=== PATIENT | male | born 1960 | race Caucasian/White ===

== ENCOUNTER 2019-10-01 12:01 | Emergency (ER) | payer OTHER, SELFPAY ==
[2019-10-01 12:02] VITALS: BP 158/89; PULSE 69; RESP 18; TEMP 36.6; O2SAT 96; BMI 33.5
--- NOTE | 2019-10-01 12:18 | EKG12_ITS ---
Test Reason : PALPIATIONS Blood Pressure : / mmHG Vent. Rate : 070 BPM Atrial Rate : 070 BPM P-R Int : 178 ms QRS Dur : 084 ms QT Int : 360 ms P-R-T Axes : 037 -09 005 degrees QTc Int : 388 ms Sinus rhythm with Premature atrial complexes Inferior infarct , age undetermined Abnormal ECG Confirmed by NEHA SANTANA, LEONARDO ([id number]), publishing editor VALERIE PERRY ([id number]) on 10/04/2019 10:33:59 AM Referred By: KEV/ Confirmed By:LEONARDO SOLOMON MD
--- NOTE | 2019-10-01 12:19 | ED.VIS.GEN ---
History of Present Illness Chief Complaint: Palpitations Narrative: Patient is a 59-year-old male who presents with palpitations. He does have a prior history of atrial fibrillation. He also reports prior history of TN however has been noncompliant with medications. However he reports that his TN was related to a chemical exposure from a solvent. He did not have any coronary stents. States currently he only takes glucosamine and a multivitamin. Over the past 3 days he has had increased palpitations and sensation of his heart racing. He denies any associated chest pain shortness of breath near syncope. No nausea or vomiting. He otherwise denies recent illness such as fevers or cough. Past Medical History - Allergies and Home Meds Allergies/Adverse Reactions: Allergies No Known Allergies Allergy (Verified 10/01/19 12:47) Past Medical History: - - History of TN, atrial fibrillation Review of Systems All systems negative except as indicated General: Denies: Fever Eyes: Denies: Visual changes - bilaterally ENT: Denies: Bilateral ear pain Cardiovascular: Reports: Palpitations, Heart racing. Denies: Chest pain Respiratory: Denies: Dyspnea Gastrointestinal: Denies: Nausea, Vomiting, Diarrhea Musculoskeletal: Denies: Myalgias, Arthralgias Skin: Denies: Rash Neurological: Denies: Headache Hematologic: Denies: Easy bruising Allergy: Denies: Uticaria Physical Exam Vital Signs/Narrative: Vital Signs Temp Pulse Resp BP Pulse Ox 10/01/19 12:02 97.8 F 69 18 158/89 H 96 Inital Vital Signs reviewed: Yes General: Well nourished Head: Normocephalic Eyes: EOMI ENT: Moist mucous membranes Neck: Supple Cardiovascular: Regular rate, Regular rhythm Respiratory: No distress, CTA bilaterally Abdomen: Soft, Nontender Extremities: Nontender Skin: Normal color Neurological: Alert Psychological: Normal affect Diagnostic/Tx/Re-eval Impressions Chest X-Ray 10/01/19 13:02 IMPRESSION: No acute abnormality is seen. Electronically Signed: Nilton Broussard, at 13:13 EDT , Service support , 10/01/19 13:02 Chest PA and Lateral [RAD] Stat Laboratory Results 10/01/19 10/01/19 12:55 12:55 WBC 6.4 RBC 4.93 Hgb 15.5 Hct 46.2 MCV 93.7 MCH 31.4 MCHC 33.5 RDW Std Deviation 42.5 RDW Coeff of Nigel 12.3 Plt Count 235 MPV 10.2 Immature Gran % (Auto) 0.000 Neut % (Auto) 60.7 Lymph % (Auto) 29.8 [place] % (Auto) 7.4 Eos % (Auto) 1.6 Baso % (Auto) 0.5 Absolute Neuts (auto) 3.9 Absolute Lymphs (auto) 1.89 Nucleated RBC % 0 Sodium 140 Potassium 3.8 Chloride 106 Carbon Dioxide 28.0 Anion Gap 6 BUN 13 Creatinine 0.82 Estim Creat Clear Calc 111.38 Est GFR (MDRD) Af Amer 124 Est GFR (MDRD) Non-Af 102 BUN/Creatinine Ratio 15.9 Glucose 88 Calcium 8.7 Troponin I < 0.015 - Medical Decision Making EKG shows sinus rhythm with PACs at a rate of 70 no acute ischemic changes. Labs are unremarkable. Chest x-ray unremarkable. Patient does not have a primary care physician. We will refer to establish primary care. Although he has a history of atrial fibrillation at this time he is in normal sinus rhythm and controlled. I do not see indication for hospitalization. He understands return for new or worsening symptoms and was advised on specific signs and symptoms to monitor for and was discharged home. ED Disposition - Plan for ED Patient: Disposition: Home or Assisted Living Diagnosis: Palpitations Instructions: ED Palpitations Referrals: Fast,Swetha, DO [NON-STAFF] -
--- NOTE | 2019-10-01 13:02 | RAD_ITS ---
STUDY: X-RAY CHEST REASON FOR EXAM: Male, 59 years old. Pt is having palpitations for 3 days. TECHNIQUE: PA and lateral views of the chest. COMPARISON: None. FINDINGS: EKG electrodes are seen. The lungs are clear and expanded. There is no demonstrated pleural abnormality. Normal size heart. Normal mediastinum and ko. Normal visualized pulmonary arteries. There is atherosclerotic tortuosity of the aortic arch and descending thoracic aorta. There is demineralization of the osseous structures. Loss of white of mid dorsal vertebrae. Normal visualized ribs, clavicles, and shoulders. There is no demonstrated abnormality of the visualized soft tissue structures of the upper abdomen. RAD/Chest PA and Lateral IMPRESSION: No acute abnormality is seen. Electronically Signed: Nilton Broussard, at 13:13 EDT , Service support ,
[2019-10-01 13:04] LABS: Absolute Lymphocyte Count 1.89 X10^3/uL (0.83-4.51); Absolute Neutrophil Count 3.9 X10^3/uL (2.0-7.7); Basophil# 0.03 X10^3/uL; Basophil% 0.5 % (0-1); Eosinophils% 1.6 % (0-5); Hematocrit 46.2 % (40-54); Hemoglobin 15.5 g/dL (13.0-16.5); Lymphocyte # 1.89 X10^3/ul (4.0); Lymphocyte % 29.8 % (19-41); Mean Corp Hgb Conc 33.5 g/dL (32-36); Mean Corpuscular Hgb 31.4 pg (27.0-32.0); Mean Corpuscular Volume 93.7 fL (80-94); Mean Platelet Vol. 10.2 fl (6.2-12.0); Monocyte# 0.47 X10^3/uL; Monocyte% 7.4 % (0-10); NRBC Flagged by Analyzer 0 % (0-5); Neutrophil # 3.86 X10^3/uL (2.7-7.7); Neutrophil % 60.7 % (47-70); Platelet Count 235 K/mm3 (150-450); RBC Distribution Width CV 12.3 % (11.6-14.6); RBC Distribution Width SD 42.5 fl (35.1-43.9); Red Blood Count 4.93 M/mm3 (4.6-6.2); White Blood Count 6.4 K/mm3 (4.4-11.0)
[2019-10-01 13:18] VITALS: BP 130/75; PULSE 73; RESP 14; O2SAT 96; O2SAT 97
[2019-10-01 13:20] LABS: Anion Gap 6 (5-15); BUN 13 mg/dL (7-18); BUN/Creat Ratio 15.9 RATIO (10-20); Calcium,Total 8.7 mg/dL (8.5-10.1); Chloride 106 mmol/L (98-107); Creatinine, Serum 0.82 mg/dL (0.70-1.30); EST Glomerular Filtration Rate 102 mL/min (>60); Est Glom Filt Rate - Afr Amer 124 mL/min (>60); Estimated Creatinine Clearance 111.38 ml/min; Glucose 88 mg/dL (74-106); Potassium 3.8 mmol/L (3.5-5.1); Sodium Level 140 mmol/L (136-145)
[2019-10-01 14:16] VITALS: BP 122/77; PULSE 69; RESP 24; O2SAT 96
== END 2019-10-01 14:17 | disposition home or self-care (01) ==
PROVIDERS: Emergency Provider Emergency Medicine
DX: R00.2 Palpitations (principal); I48.91 Unspecified atrial fibrillation; I25.2 Old myocardial infarction; Z91.14 Patient's other noncompliance with medication regimen
CPT/HCPCS: 71046; 80048; 84484; 85025; 93005; 99284; A4216

== ENCOUNTER → 2020-02-11 10:38 | Outpatient (CLI) | payer OTHER, SELFPAY ==
[2020-01-23 11:28] VITALS: BMI 34.5
--- NOTE | 2020-02-11 10:40 | ECHOD_ITS ---
Reason For Study: ARRHYTHMIA Procedure This was a 2D Doppler, Color Flow transthoracic echocardiogram. Exam performed in department. Left Ventricle Normal LV size. Left ventricular systolic function is normal. Stage 1 diastolic dysfunction. No regional wall motion abnormalities noted. Right Ventricle Normal RV size. Normal systolic function. Atria The left atrium is moderately enlarged. Normal right atrium. Mitral Valve Normal mitral valve. Tricuspid Valve Normal tricuspid valve. Mild (1+) tricuspid valve insufficiency. Pulmonary artery systolic pressure is 38 mmHg. Aortic Valve Normal aortic valve. Trisinus/trileaflet aortic valve. Pulmonic Valve Normal pulmonic valve. Great Vessels Mildly dilated aortic root. The pulmonary artery is normal size. Inferior vena cava collapse with respiration. Pericardium/Pleural No pericardial effusion. MMode/2D Measurements & Calculations LVIDd: 4.6 cm IVSd: 1.1 cm Ao root diam: 4.2 cm LVIDs: 2.6 cm LVPWd: 1.1 cm RVDd: 4.6 cm FS: 43.8 % LAV(MOD-bp): 99.7 ml LA A4 area: 27.6 cm2 LA dimension(2D): 5.1 cm LAV(MOD-bp) Indexed: 40.5 ml/m2 LAV(MOD-sp2): 106.6 ml LAV(MOD-sp4): 89.7 ml RA A4 area: 20.1 cm2 Time Measurements MV dec time: 0.23 sec Doppler Measurements & Calculations MV E max lauro: 60.9 cm/sec Lat Peak E' Lauro: 7.0 cm/sec Med Peak E' Lauro: 6.2 cm/sec MV A max lauro: 70.6 cm/sec E/E' lat: 8.7 E/E' med: 9.8 MV E/A: 0.86 Ao V2 max: 142.3 cm/sec LV V1 max: 94.4 cm/sec PA V2 max: 112.5 cm/sec Ao max P.1 mmHg LV V1 max P.6 mmHg PI end-d lauro: 113.8 cm/sec TR max lauro: 295.5 cm/sec TR max P.9 mmHg Interpretation Summary Normal LV size. Left ventricular systolic function is normal. Stage 1 diastolic dysfunction. Pulmonary artery systolic pressure is 38 mmHg. Mildly dilated aortic root. Ordering Physician: Kendrick Iniguez Referring Physician: SCOTTY LIRA Performed By: Miriam Schafer RDCS, RVT
== END ==
PROVIDERS: PCP Family Medicine; Referring Provider Internal Medicine Cardiovascular Disease; Visit Provider Internal Medicine Cardiovascular Disease
DX: I49.1 Atrial premature depolarization (principal)
CPT/HCPCS: 93225; 93226; 93306

== ENCOUNTER 2020-06-20 05:56 | Day surgery (SDC) | payer OTHER, SELFPAY ==
[2020-05-05 09:05] VITALS: BMI 33.5
--- NOTE | 2020-06-06 07:25 | HP_ITS ---
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 Is patient in pain?: No Allergies No Known Allergies Allergy (Verified 05/05/20 09:06) Medications Multivitamins,Therapeutic [Multivitamin] 1 tab PO DAILY 10/01/19 [History Confirmed 05/05/20] Turmeric Root Extract [Turmeric Curcumin] 500 mg PO DAILY 10/01/19 [History Confirmed 05/05/20] lisinopril 20 mg tablet 10 mg PO DAILY #90 tab 04/15/20 [Rx Confirmed 05/05/20] aspirin 325 mg tablet,delayed release 325 mg PO .QODAY tab 05/05/20 [History Confirmed 05/05/20] omega-3 fatty acids 1,000 mg capsule 1,000 mg PO DAILY 05/05/20 [History Confirmed 05/05/20] [facility] Medical History (Updated 05/05/20 @ 09:04 by Loren Michael) Obesity (Chronic) Obstructive sleep apnea (Chronic) History of non-ST elevation myocardial infarction (NSTEMI) (Resolved 2003) Hypertension (Chronic) Arthritis (Acute) Fatigue (Acute) Intermittent palpitations (Acute) Irregular heart beats (Chronic) Premature atrial contractions (Chronic) Surgical History (Updated 05/05/20 @ 09:04 by Loren Michael) History of esophagogastroduodenoscopy (EGD) (Acute) Hx of umbilical hernia repair (Acute) History of herniorrhaphy (Resolved) Family History Mother Heart disease atrial fib RFA Grandfather Myocardial infarction Brother Heart disease Atrial fib? Social History (Updated 05/06/20 @ 08:[address] Anthony Cole MD) Smoking Status: Former smoker quit date: 05/02/79 second hand exposure: No alcohol intake: current alcohol intake frequency: 0-2 drinks per day Alcohol type: beer substance use type: does not use caffeine: Yes Type: coffee what type of physical activity do you participate in: other HPI HPI HPI: ANABELLA CM, is a 59 M who presents to the office today for HPI HPI Surgical H&P: Yes HPI: ANABELLA CM, is a 59 M who presents to the office today for Screening colonoscopy. The patient has never had a screening colonoscopy. The patient describes no abdominal pain or blood in his stool. He has no nausea or vomiting. He has no family history of colon cancer. ROS General General: Yes fatigue; no weight change, appetite, colon cancer, breast cancer or weakness HEENT HEENT: No difficulty swallowing, eye injury, eye surgery, swollen glands or hoarseness Endo Endocrine: No thyroid disease, diabetes mellitus, thyroid cancer, Hair loss, heat intolerance or cold intolerance Skin Skin: No rash or changing moles Breast Breast: No left breast lump, right breast lump, nipple discharge, breast pain, abnormal mammogram, abnormal US or breast enlargement Musc Musculoskeletal: Yes arthritis and joint pain; no back problems, rheumatoid arthritis or gout Cardio Cardiovascular: Yes high blood pressure and heart attack; no murmur, pacemaker, heart disease, atrial fibrillation, heart stent, palpitations, shortness of breat with exertion or chest pain Psych Psychiatric: No depression, anxiety or hearing voices Resp Respiratory: No shortness of breath, Yes sleep apnea, No cough, No COPD, No asthma, No emphysema, No wheezing Gastro Gastrointestinal: No abdominal pain, No nausea or vomiting, No diarrhea, No constipation, No blood in stool, No acid reflux, No hemorrhoids, No ulcers, No gallbladder problem, No black,tarry stools Harvey Hematologic: No blood thinners, No blood disorders, No bleeding, No anemia, No blood clots Neuro Neurologic: No system reviewed and no additional complaints, except as docu, No as per HPI, No abnormal walking, No abnormal hearing, No abnormal movements, No abnormal speech, No behavioral changes, No burning sensations, No confusion, No seizure-like activity, No unsteadiness, No dizziness, No localized weakness, No frequent falls, No headache(s), No lack of coordination, No loss of vision, No memory loss, No numbness, No other visual disturbances, No radiating pain, No restless legs, No sensory deficit, No fainting, No tingling, No tremor(s), No weakness, No other Exam Const General: cooperative Orientation: alert, oriented x3 Chest Breast Palpation: No nipple discharge Resp Effort & Inspection: normal respiratory effort Auscultation: clear to auscultation bilaterally Cardio Rate: regular rate Rhythm: regular rhythm Heart Sounds: no murmurs GI Inspection: non-distended Palpation: soft, nontender Assessment & Plan Problems 1. Screening for colon cancer Z12.11 Plan The patient has never had a screening colonoscopy. I recommended one to him. I would like him to hold his aspirin for 5 days prior to the procedure. I explained endoscopy in detail to the patient. I explained the risks including but not limited to stroke or heart attack with anesthesia, perforation of the GI tract, bleeding, infection. I explained that any of these could necessitate further emergency surgery. The patient understands and all questions were answered sufficiently. The patient wishes to proceed with procedure. We discussed the current risks associated with COVID-19. While it is understood that there is a community spread of COVID-19, the risk of hyacinth COVID-19 while at [facility] ([facility]) is very low; however, the risk cannot be completely mitigated because of the community spread of the disease. We discussed in detail the risk of exposure to and/or potential harm posed by the COVID-19 virus with having a surgery/procedure at this time versus the risk of delaying the surgery/procedure. It is not possible to know either the risk of delaying the surgery or procedure or chance of getting an infection with perfect accuracy, but a joint decision was made to proceed at this time with the scheduled surgery/procedure as indicated on the consent form. Patient was notified that we will need to comply with any screening or testing [facility] wishes to perform or that surgery may be delayed for any positive results. Anthony Cole MD Pager: [facility] [address] [place] [address], [address] [place] [address] Office: Orders Orders: Colonoscopy Today Z12.11 Coding Level of Care Code Off vis,new,level 3 Diagnoses Screening for colon cancer Z12.11 I have re-examined the patient. There are no clinical changes since date of exam.
[2020-06-20 07:09] VITALS: BP 142/87; PULSE 74; RESP 16; TEMP 36.3; O2SAT 96; BMI 33.7
[2020-06-20] MEDS: Lactated Ringers 1,000 ML 100 ML IV (07:23)
[2020-06-20 08:19] VITALS: BP 142/87; BP 98/59; PULSE 65; RESP 16; TEMP 36.1; O2SAT 95
[2020-06-20 08:20] VITALS: BP 105/70; BP 142/87; PULSE 61; RESP 16; O2SAT 95
--- NOTE | 2020-06-20 08:22 | OP.COLON_ITS ---
Patient Name: Du Lenz Procedure Date: 06/20/2020 7:46 AM Date of : 1960 Age: 59 Procedure: Colonoscopy Indications: Screening for colorectal malignant neoplasm Providers: Anthony Cole MD Referring MD: Shirley Carcamo Medicines: Monitored Anesthesia Care Patient Profile: This is a 59 year old male. Refer to note in patient chart for documentation of history and physical. Last Colonoscopy: none. The patient's first colonoscopy is today. Complications: No immediate complications. Procedure: Pre-Anesthesia Assessment: - Prior to the procedure, a History and Physical was performed, and patient medications and allergies were reviewed. The patient's tolerance of previous anesthesia was also reviewed. The risks and benefits of the procedure and the sedation options and risks were discussed with the patient. All questions were answered, and informed consent was obtained. Prior Anticoagulants: The patient has taken aspirin, last dose was 5 days prior to procedure. After reviewing the risks and benefits, the patient was deemed in satisfactory condition to undergo the procedure. After I obtained informed consent, the scope was passed under direct vision. Throughout the procedure, the patient's blood pressure, pulse, and oxygen saturations were monitored continuously. The pediatric colonoscope was introduced through the anus and advanced to the cecum, identified by appendiceal orifice and ileocecal valve. The colonoscopy was performed without difficulty. The patient tolerated the procedure well. The quality of the bowel preparation was good. Scope In: 7:54:13 AM Scope Withdrawal Time 0 hours 6 minutes 3 seconds Scope Out: 8:15:15 AM Total Procedure Duration Time 0 hours 21 minutes 2 seconds Findings: The entire examined colon appeared normal on direct and retroflexion views. Impression: - The entire examined colon is normal on direct and retroflexion views. - No specimens collected. Recommendation: - Discharge patient to home. - Resume previous diet. - Continue present medications. - Repeat colonoscopy in 10 years for screening purposes. Procedure Code(s): --- Professional --- 78080, Colonoscopy, flexible; diagnostic, including collection of specimen(s) by brushing or washing, when performed (separate procedure) Diagnosis Code(s): --- Professional --- Z12.11, Encounter for screening for malignant neoplasm of colon CPT copyright 2017 [employer]. All rights reserved. The codes documented in this report are preliminary and upon company dancer review may be revised to meet current compliance requirements. Anthony Cole MD 06/20/2020 8:22:37 AM This report has been signed electronically. Number of Addenda: 0 Note Initiated On: 06/20/2020 7:46 AM
--- NOTE | 2020-06-20 08:23 | OP.CCLET_ITS ---
06/20/2020 Shirley Carcamo [facility] [address] [address] Re : Colonoscopy procedure for Du Lenz Dear Dr. Carcamo This procedure was performed on Saturday, June 20, 2020. My impressions and recommendations are as follows: Impressions : - The entire examined colon is normal on direct and retroflexion views. - No specimens collected. Recommendations : - Discharge patient to home. - Resume previous diet. - Continue present medications. - Repeat colonoscopy in 10 years for screening purposes. My findings are described in the full procedure note, which is enclosed. If I can be of further assistance, please feel free to contact me at Doctor phone number(s): , Work: . Sincerely, Anthony Cole MD 06/20/2020 8:22:37 AM This report has been signed electronically.
[2020-06-20 08:27] VITALS: BP 107/76; BP 142/87; PULSE 66; RESP 16; O2SAT 97
[2020-06-20 08:35] VITALS: BP 103/72; BP 115/71; BP 142/87; PULSE 67; RESP 16; TEMP 36.1; O2SAT 95; O2SAT 96
[2020-06-20 08:54] VITALS: BP 142/87
== END 2020-06-20 09:05 | disposition home or self-care (01) ==
LOC: EN 05:57 → AC 05:57
PROVIDERS: PCP Family Medicine; Referring Provider Family Medicine; Visit Provider Surgery
PROC: 0DJD8ZZ Inspection of Lower Intestinal Tract, Via Natural or Artificial Opening Endoscopic (ICD-10-PCS; CPT 45378; principal; 2020-06-20 07:55)
DX: Z12.11 Encounter for screening for malignant neoplasm of colon (principal); I10 Essential (primary) hypertension; I48.91 Unspecified atrial fibrillation; I49.1 Atrial premature depolarization; I25.2 Old myocardial infarction; M19.90 Unspecified osteoarthritis, unspecified site; E66.9 Obesity, unspecified; Z68.33 Body mass index [BMI] 33.0-33.9, adult; Z79.82 Long term (current) use of aspirin; Z79.899 Other long term (current) drug therapy; Z87.891 Personal history of nicotine dependence
CPT/HCPCS: 45378; 87426; J7120; J2405

== ENCOUNTER → 2020-08-04 12:13 | Outpatient (CLI) | payer OTHER, SELFPAY ==
[2020-07-24 12:44] VITALS: BMI 33.5
== END ==
PROVIDERS: PCP Family Medicine; Visit Provider Nurse Practitioner Acute Care
DX: G47.33 Obstructive sleep apnea (adult) (pediatric) (principal)

== ENCOUNTER → 2020-08-11 13:49 | Outpatient (CLI) | payer OTHER, SELFPAY ==
[2020-07-24 12:44] VITALS: BMI 33.5
[2020-08-11 15:12] LABS: Hematocrit 47.5 % (40-54); Hemoglobin 15.5 g/dL (13.0-16.5); Mean Corp Hgb Conc 32.6 g/dL (32-36); Mean Corpuscular Hgb 30.9 pg (27.0-32.0); Mean Corpuscular Volume 94.6 fL (80-94); Mean Platelet Vol. 10.9 fl (6.2-12.0); Platelet Count 256 K/mm3 (150-450); RBC Distribution Width CV 12.4 % (11.6-14.6); RBC Distribution Width SD 43.2 fl (35.1-43.9); Red Blood Count 5.02 M/mm3 (4.6-6.2); White Blood Count 7.6 K/mm3 (4.4-11.0)
[2020-08-11 16:08] LABS: Anion Gap 6 (5-15); BUN 18 mg/dL (7-18); BUN/Creat Ratio 19.7 RATIO (10-20); Calcium,Total 9.1 mg/dL (8.5-10.1); Chloride 104 mmol/L (98-107); Creatinine, Serum 0.92 mg/dL (0.70-1.30); EST Glomerular Filtration Rate 90 mL/min (>60); Est Glom Filt Rate - Afr Amer 108 mL/min (>60); Glucose 88 mg/dL (74-106); Magnesium 2.4 mg/dL (1.6-2.6); Potassium 3.9 mmol/L (3.5-5.1); Sodium Level 138 mmol/L (136-145); Thyroid Stim Hormone (TSH) 1.63 uIU/mL (0.358-3.74)
== END ==
PROVIDERS: PCP Family Medicine; Referring Provider Internal Medicine Cardiovascular Disease; Visit Provider Internal Medicine Cardiovascular Disease
DX: I49.1 Atrial premature depolarization (principal); I49.9 Cardiac arrhythmia, unspecified; R00.2 Palpitations; R53.83 Other fatigue
CPT/HCPCS: 36415; 80048; 83735; 84443; 85027

== ENCOUNTER 2021-08-30 13:53 | Emergency (ER) | payer OTHER, SELFPAY ==
[2021-08-30 13:54] VITALS: BP 122/69; PULSE 85; RESP 17; TEMP 36.2; O2SAT 97
--- NOTE | 2021-08-30 14:09 | CT_ITS ---
STUDY: CT BRAIN WITHOUT CONTRAST REASON FOR EXAM: Male, 61 years old. Dizziness RADIATION DOSAGE (If Supplied By Facility): CTDIvol = ( 44.99 ) mGy, DLP = ( 863.60 ) mGycm TECHNIQUE: Transaxial CT imaging of the brain was performed without administration of intravenous contrast material. Individualized dose optimization techniques were used for this CT. COMPARISON: No relevant priors. FINDINGS: Normal soft tissue structures. Normal calvarium. Normal size ventricles and extra-axial spaces for the patient''s age. Normal white matter tracts of the cerebral hemispheres. Normal basal ganglia and thalami. Normal brainstem. Normal cerebellum. There is no intracranial hemorrhage. There are no findings of an acute ischemic infarction. Normal visualized paranasal sinuses. CT/Brain/Head without Contrast IMPRESSION: No acute intracranial hemorrhage, mass effect or acute large territory infarcts Electronically Signed: Manuel Rodrigez MD at 15:01 EDT ,
--- NOTE | 2021-08-30 14:10 | EKG12_ITS ---
Test Reason : DIZZINESS Blood Pressure : / mmHG Vent. Rate : 078 BPM Atrial Rate : 078 BPM P-R Int : 166 ms QRS Dur : 076 ms QT Int : 344 ms P-R-T Axes : 046 -05 010 degrees QTc Int : 392 ms Sinus rhythm with Premature supraventricular complexes Inferior infarct , age undetermined Abnormal ECG Confirmed by VERONICA SANTANA, PARADISE ([id number]), editor book RAMEZ HANNA ([id number]) on 08/31/2021 1:23:27 PM Referred By: UTE Confirmed By:PARADISE MARTIN MD
--- NOTE | 2021-08-30 14:10 | EX.ED.DYSGE1 ---
HPI History of Present Illness Chief Complaint: Dizziness Informant: patient Onset/Context/Timing Onset: Today Context: Sudden Onset Timing: Intermittent Current Severity: Mild Maximum Severity: 10/09 Narrative Narrative: 61-year-old male history of hypertension prior MA and PACs. States he was washing his car today and going from up-and-down position he had dizziness. Said he felt off balance. Denies any headache. No chest pain. No abdominal pain. No nausea, vomiting or diarrhea. He had a similar episode a week ago when he was planning shrubs at his mom's house. He denies any visual change or speech change. He denies any numbness or weakness to his upper or lower extremities. Denies any vertigo symptoms. Prior similar symptoms: Yes Recent Illness/Hospitalization: No PFSH PFSH Medical History Arthritis Essential hypertension History of non-ST elevation myocardial infarction (NSTEMI) (2003) Intermittent palpitations Irregular heart beats Obesity Obstructive sleep apnea Premature atrial contractions Home Medications multivitamin with folic acid 1 tab PO DAILY 10/01/19 [History Last Taken Unknown] turmeric root extract 500 mg PO DAILY 10/01/19 [History Last Taken Unknown] omega-3 fatty acids 1,000 mg capsule 1,000 mg PO QODAY 05/05/20 [History Last Taken Unknown] Vinegar Tonic 1 dose PO QODAY 06/13/20 [History Last Taken Unknown] ascorbic acid (vitamin C) 1,000 mg PO DAILY 06/13/20 [History Last Taken Unknown] coenzyme Q10 100 mg PO QODAY 06/13/20 [History Last Taken Unknown] grape seed extract 150 mg PO DAILY 06/13/20 [History Last Taken Unknown] hawthorn 500 mg capsule mg PO 07/23/21 [History Last Taken Unknown] losartan 50 mg tablet 50 mg PO DAILY #30 tab 08/05/21 [Rx Last Taken Unknown] Allergy/AdvReac Type Severity Reaction Status Date / Time No Known Allergies Allergy Verified 08/30/21 13:53 Family History Mother Heart disease atrial fib RFA Grandfather Myocardial infarction Brother Heart disease Atrial fib? Surgical History History of esophagogastroduodenoscopy (EGD) History of herniorrhaphy Hx of umbilical hernia repair Social History Smoking Status: Unknown if ever smoked second hand exposure: No alcohol intake: current alcohol intake frequency: 0-2 drinks per day Alcohol type: beer substance use type: does not use caffeine: Yes Type: coffee what type of physical activity do you participate in: other ROS ROS ED ROS Narrative Dizziness. Denies nausea, vomiting, diarrhea. Denies headache, chest pain, abdominal pain or shortness of breath. Denies fever or chills. Review of Systems ROS Unobtainable: Denies due to encephalopathy Constitutional Constitutional ED: Denies chills or fever(s) Eyes Eyes: Denies blurry vision, change in vision or diplopia ENT ENT ED: Denies ear pain or rhinorrhea Cardiovascular Cardiovascular: Denies chest pain, palpitations or racing heartbeat Respiratory/Chest Respiratory/Chest: Denies cough or dyspnea Gastrointestinal Gastrointestinal: Denies abdominal pain, constipation, diarrhea, nausea or vomiting Genitourinary Genitourinary ED: Denies dysuria Musculoskeletal Musculoskeletal: Denies arthralgias or myalgias Integumentary Denies abscess or rash Neurologic Neurologic: Denies headache(s), paresthesias or weakness Psychiatric Psychiatric: Denies depression Endocrine Endocrinology: Denies polyuria Allergic/Immunologic Allergic/Immunologic ED: Denies urticaria EXAM Physical Exam Narrative Exam Narrative: 61-year-old male vital signs are stable afebrile. Pulse ox 97% on room air no signs hypoxia. H EENT exam normal. Pupils round reactive light. Extra motions are intact. Normal speech. No facial droop. No trauma. Neck nontender no meningismus. Lungs clear to auscultation bilaterally. Heart regular rhythm rate about 85 no murmur. Chest wall nontender. Abdomen soft nontender. Moving all 4 extremities. 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 Dorsi plantarflexion intact. Neurologic exam normal. NIH is 0. Fingertip to nose within normal limits. Const Vital Signs: 08/30/21 13:54 08/30/21 14:04 08/30/21 14:55 Temperature 97.2 F L Temperature Source Temporal Pulse Rate 85 Pulse Rate [Lying] 73 Pulse Rate [Sitting (for 1 minute prior to obtaining)] 70 Pulse Rate [Standing (for 1 minute prior to obtaining)] 80 Respiratory Rate 17 Respiratory Effort Normal Non-Labored Respiratory Pattern Normal Blood Pressure 122/69 H Blood Pressure [Lying] 118/73 Blood Pressure [Sitting (for 1 minute prior to obtaining)] 121/84 H Blood Pressure [Standing (for 1 minute prior to obtaining)] 113/88 H Blood Pressure Mean 86 Blood Pressure Mean [Lying] 88 Blood Pressure Mean [Sitting (for 1 minute prior to obtaining)] 96 Blood Pressure Mean [Standing (for 1 minute prior to obtaining)] 96 Pulse Ox 97 Oxygen Delivery Method Room Air 08/30/21 16:09 Temperature Temperature Source Pulse Rate 72 Pulse Rate [Lying] Pulse Rate [Sitting (for 1 minute prior to obtaining)] Pulse Rate [Standing (for 1 minute prior to obtaining)] Respiratory Rate 24 H Respiratory Effort Respiratory Pattern Blood Pressure 115/82 H Blood Pressure [Lying] Blood Pressure [Sitting (for 1 minute prior to obtaining)] Blood Pressure [Standing (for 1 minute prior to obtaining)] Blood Pressure Mean 93 Blood Pressure Mean [Lying] Blood Pressure Mean [Sitting (for 1 minute prior to obtaining)] Blood Pressure Mean [Standing (for 1 minute prior to obtaining)] Pulse Ox 96 Oxygen Delivery Method Room Air Positive well nourished, well developed and obese; Negative for cachectic, contractures or unkempt General Appearance ED: well developed and NAD; Negative for unkempt, cachectic, contractures, cyanotic, diaphoretic or pallor Nutritional Appearance: obese; Negative for cachectic HEENT Reports moist mucous membranes Negative for trauma or tenderness Eyes PERRL and EOMs intact bilaterally General Eye ED: Negative for pale conjunctiva or scleral icterus Neck no lymphadenopathy, supple and no JVD General: Negative for tenderness Chest Wall inspection of chest normal and palpation of chest normal Resp normal respiratory effort and clear to auscultation bilaterally Effort and Inspection: Negative for pain with movement Auscultation: Negative for rales, rhonchi or wheezes Cardio regular rate, regular rhythm, S1 normal heart sound, S2 normal heart sound and no murmurs GI normal to inspection, nondistended, normoactive bowel sounds, non-tender, non-distended and no masses Inspection: Negative for abdominal distention Auscultation: normoactive bowel sounds Palpation: soft; Negative for tender, guarding or rebound tenderness present Back/Spine no CVA tenderness General Back: Negative for CVA tenderness Cervical Spine: Negative for cervical spine tenderness Thoracic Spine / Upper Back: Negative for thoracic spinal tenderness or paraspinal muscle tenderness Lumbar Spine / Lower Back: Negative for lumbar spinal tenderness Extremity normal to inspection General Extremety ED: Negative for edema or tenderness General Extremity: Negative for edema Neuro oriented x3 and CN's II-XII intact bilaterally Sensorium / Orientation: alert; Negative for orientation impaired, lethargic or stuporous Motor Exam: strength 5/5 throughout; Negative for general weakness Psych mental status grossly normal Appearance: Negative for unkempt Attitude: No agitated Mood & Affect: Negative for depressed, anxious or tearful Skin no rashes or lesions noted and no wounds General Skin Exam: Negative for jaundice or pallor MDM MDM MDM Narrative Medical decision making narrative: 61-year-old complain dizziness which appears to be positional but but not vertiginous. His exam is normal. His neurologic exam is normal. CAT scan labs are pending. Repeat exam at 4:40 PM patient is doing well. Exam normal. No change. And I discussed all of his test results and outpatient follow-up. He knows return if worse. Lab Data Attestation: I reviewed the patient's lab results. Lab results narrative: CBC shows a white count 1.3 H&H 15 and 45. Platelets 235. Electrolytes show a gap of 5 BUN 23 creatinine 0.9. Glucose 100. CAT scan shows no acute abnormality as read by the radiologist and reviewed by me. Orthostatic vital signs were negative per nursing. Labs: Laboratory Results - last 24 hr 08/30/21 08/30/21 14:26 14:26 WBC 11.3 H RBC 4.85 Hgb 15.9 Hct 45.2 MCV 93.2 MCH 32.8 H MCHC 35.2 RDW Std Deviation 42.1 RDW Coeff of Nigel 12.2 Plt Count 235 MPV 10.0 Immature Gran % (Auto) 0.400 Neut % (Auto) 77.2 H Lymph % (Auto) 15.6 L [place] % (Auto) 5.6 Eos % (Auto) 0.9 Baso % (Auto) 0.3 Absolute Neuts (auto) 8.7 H Absolute Lymphs (auto) 1.76 Nucleated RBC % 0 Sodium 140 Potassium 4.1 Chloride 109 H Carbon Dioxide 26.0 Anion Gap 5 BUN 23 H Creatinine 0.93 Estim Creat Clear Calc 95.75 Est GFR (MDRD) Af Amer 106 Est GFR (MDRD) Non-Af 88 BUN/Creatinine Ratio 24.8 H Glucose 100 Calcium 9.2 Radiography Diagnostic Testing: Clinical Impression(s) from Imaging Studies Brain CT 08/30/21 14:09 IMPRESSION: No acute intracranial hemorrhage, mass effect or acute large territory infarcts Electronically Signed: Manuel Rodrigez MD at 15:01 EDT , Rhythm Strip Rhythm Strip: Sinus Rhythm Rate: 78 Ectopy: None EKG Initial EKG: Attestation: I personally reviewed and interpreted this EKG as follows: Interpretation: Sinus Rhythm and No Acute Injury Pattern Comments: Normal sinus rhythm rate of 78 no acute signs of MA no ischemia nor significant dysrhythmia. Discharge Plan Triage Chief Complaint: Dizziness ED Provider: Jayro Stauffer Dx/Rx/DC Orders Clinical Impression: Dizziness of unknown cause, History of chronic hypertension Instructions: ED Dizziness, Uncertain Cause Prescriptions: No Action omega-3 fatty acids 1,000 mg capsule 1,000 mg PO QODAY RF: 0 hawthorn tamayo 500 mg capsule PO RF: 0 turmeric root extract 500 MG capsule 500 mg PO DAILY RF: 0 multivitamin with folic acid 1 TABLET tablet 1 tab PO DAILY RF: 0 ascorbic acid (vitamin C) 1,000 MG tablet 1,000 mg PO DAILY RF: 0 coenzyme Q10 100 MG capsule 100 mg PO QODAY RF: 0 grape seed extract 150 MG tablet extended release 150 mg PO DAILY RF: 0 Vinegar Tonic 1 dose PO QODAY RF: 0 losartan 50 mg tablet 50 mg PO DAILY Qty: 30 RF: 11 Primary Care Provider: Shirley Carcamo Referrals: Shirley Carcamo MD [Primary Care Provider] - As soon as possible Activity Restrictions/Additional Instructions: Your test today were unremarkable. Call and follow-up with your primary care physician for further evaluation. Disposition Disposition: Home, Self Care
[2021-08-30 14:36] LABS: Absolute Lymphocyte Count 1.76 X10^3/uL (0.83-4.51); Absolute Neutrophil Count 8.7 X10^3/uL (2.0-7.7); Basophil# 0.03 X10^3/uL; Basophil% 0.3 % (0-1); Eosinophils% 0.9 % (0-5); Hematocrit 45.2 % (40-54); Hemoglobin 15.9 g/dL (13.0-16.5); Lymphocyte # 1.76 X10^3/ul (0.83-4.51); Lymphocyte % 15.6 % (19-41); Mean Corp Hgb Conc 35.2 g/dL (32-36); Mean Corpuscular Hgb 32.8 pg (27.0-32.0); Mean Corpuscular Volume 93.2 fL (80-94); Monocyte# 0.63 X10^3/uL; Monocyte% 5.6 % (0-10); NRBC Flagged by Analyzer 0 % (0-5); Neutrophil # 8.69 X10^3/uL (2.7-7.7); Neutrophil % 77.2 % (47-70); Platelet Count 235 K/mm3 (150-450); RBC Distribution Width CV 12.2 % (11.6-14.6); RBC Distribution Width SD 42.1 fl (35.1-43.9); Red Blood Count 4.85 M/mm3 (4.6-6.2); White Blood Count 11.3 K/mm3 (4.4-11.0)
[2021-08-30 14:48] LABS: Anion Gap 5 (5-15); BUN 23 mg/dL (7-18); BUN/Creat Ratio 24.8 RATIO (10-20); Calcium,Total 9.2 mg/dL (8.5-10.1); Chloride 109 mmol/L (98-107); Creatinine, Serum 0.93 mg/dL (0.70-1.30); EST Glomerular Filtration Rate 88 mL/min (>60); Est Glom Filt Rate - Afr Amer 106 mL/min (>60); Estimated Creatinine Clearance 95.75 ml/min; Glucose 100 mg/dL (74-106); Potassium 4.1 mmol/L (3.5-5.1); Sodium Level 140 mmol/L (136-145)
[2021-08-30 14:55] VITALS: BP 113/88; BP 118/73; BP 121/84; PULSE 70; PULSE 73; PULSE 80
[2021-08-30 16:09] VITALS: BP 115/82; PULSE 72; RESP 24; O2SAT 96
== END 2021-08-30 16:52 | disposition home or self-care (01) ==
PROVIDERS: Emergency Provider Emergency Medicine; PCP Family Medicine; Visit Provider Emergency Medicine
DX: R42 Dizziness and giddiness (principal); I10 Essential (primary) hypertension; I25.2 Old myocardial infarction; E66.9 Obesity, unspecified; Z68.30 Body mass index [BMI] 30.0-30.9, adult; Z79.899 Other long term (current) drug therapy
CPT/HCPCS: 70450; 80048; 85025; 93005; 99285; A4216

== ENCOUNTER → 2022-05-31 | Outpatient (CLI) | payer OTHER, SELFPAY ==
[2022-05-31 18:13] LABS: Absolute Lymphocyte Count 2.58 X10^3/uL (0.83-4.51); Absolute Neutrophil Count 4.6 X10^3/uL (2.0-7.7); Basophil# 0.03 X10^3/uL; Basophil% 0.4 % (0-1); Eosinophil# 0.31 X10^3/uL; Eosinophils% 3.8 % (0-5); Hematocrit 48.4 % (40-54); Hemoglobin 15.9 g/dL (13.0-16.5); Lymphocyte # 2.58 X10^3/ul (0.83-4.51); Lymphocyte % 31.4 % (19-41); Mean Corp Hgb Conc 32.9 g/dL (32-36); Mean Corpuscular Hgb 32.4 pg (27.0-32.0); Mean Corpuscular Volume 98.6 fL (80-94); Mean Platelet Vol. 10.8 fl (6.2-12.0); Monocyte# 0.62 X10^3/uL; Monocyte% 7.6 % (0-10); NRBC Flagged by Analyzer 0 % (0-5); Neutrophil # 4.63 X10^3/uL (2.7-7.7); Neutrophil % 56.3 % (47-70); Platelet Count 253 K/mm3 (150-450); RBC Distribution Width CV 12.6 % (11.6-14.6); RBC Distribution Width SD 45.8 fl (35.1-43.9); Red Blood Count 4.91 M/mm3 (4.6-6.2); White Blood Count 8.2 K/mm3 (4.4-11.0)
[2022-05-31 18:39] LABS: AST(SGOT) 17 U/L (15-37); Alanine Aminotransfer ALT/SGPT 29 U/L (16-61); Albumin, Serum 3.9 g/dL (3.2-5.0); Alkaline Phosphatase 71 U/L (45-117); Anion Gap 7 (5-15); BUN 28 mg/dL (7-18); BUN/Creat Ratio 28.3 RATIO (10-20); Calcium,Total 8.9 mg/dL (8.5-10.1); Chloride 105 mmol/L (98-107); Cholesterol 148 mg/dL (200); Creatinine, Serum 0.99 mg/dL (0.70-1.30); EST Glomerular Filtration Rate 81 mL/min (>60); Est Glom Filt Rate - Afr Amer 98 mL/min (>60); Globulin 3.8 g/dL (2.2-4.2); Glucose 91 mg/dL (74-106); High Density Lipoprotein 46 mg/dL; Potassium 4.4 mmol/L (3.5-5.1); Protein, Total 7.7 g/dL (6.4-8.2); Sodium Level 141 mmol/L (136-145); Triglycerides 222 mg/dL; Very Low Density Lipoprotein 44 mg/dL (5-40)
[2022-05-31 18:51] LABS: Syphilis Antibodies Non-reactive
[2022-05-31 19:00] LABS: Hemoglobin A1c 5.5 % (3.8-5.6)
== END | disposition home or self-care (01) ==
LOC: BFHLAB 14:45
PROVIDERS: PCP Family Medicine; Visit Provider Family Medicine
DX: Z00.00 Encounter for general adult medical examination without abnormal findings (principal); I10 Essential (primary) hypertension
CPT/HCPCS: 36415; 80053; 80061; 83036; 85025; 86780

== ENCOUNTER → 2025-04-09 | Outpatient (CLI) | payer MEDICARE, SELFPAY ==
[2025-04-09 17:47] LABS: Hematocrit 45.3 % (40-54); Hemoglobin 15.2 g/dL (13.0-16.5); Immature Granulocytes Count 0.040 X10^3/uL (0.0-0.0); Mean Corp Hgb Conc 33.6 g/dL (32-36); Mean Corpuscular Volume 96.2 fL (80-94); Mean Platelet Vol. 10.5 fl (6.2-12.0); NRBC Flagged by Analyzer 0 % (0-5); Platelet Count 259 K/mm3 (150-450); RBC Distribution Width CV 12.6 % (11.6-14.6); RBC Distribution Width SD 45.1 fl (35.1-43.9); Red Blood Count 4.71 M/mm3 (4.6-6.2); White Blood Count 8.2 K/mm3 (4.4-11.0)
[2025-04-09 18:58] LABS: AST(SGOT) 22 U/L (<=37); Alanine Aminotransfer ALT/SGPT 18 U/L (<=46); Albumin, Serum 4.3 g/dL (3.4-4.8); Alkaline Phosphatase 66 U/L (40-129); Anion Gap 12 (5-15); BUN 18 mg/dL (4-19); BUN/Creat Ratio 23.0 RATIO (10-20); Bilirubin, Direct 0.17 mg/dL (0.00-0.30); Calcium,Total 9.1 mg/dL (7.6-11.0); Carbon Dioxide 26.5 mmol/L (21.0-32.0); Chloride 100 mmol/L (98-108); Cholesterol 146 mg/dL (<=200); Globulin 3.0 g/dL (2.2-4.2); Glucose 84 mg/dL (70-99); Low Density Lipoprotein Calc. 79 mg/dL; Potassium 4.0 mmol/L (3.3-5.1); Triglycerides 91 mg/dL; Very Low Density Lipoprotein 18 mg/dL (5-40); cholesterol:hdl ratio screen 2.93
[2025-04-10 10:38] LABS: Hepatitis C Antibody Nonreactive (Nonreactive)
== END | disposition home or self-care (01) ==
PROVIDERS: PCP Family Medicine; Visit Provider Nurse Practitioner Family
DX: I10 Essential (primary) hypertension (principal); I49.1 Atrial premature depolarization; Z11.59 Encounter for screening for other viral diseases
CPT/HCPCS: 36415; 80048; 80061; 80076; 83036; 84443; 85025; 86803